=== PATIENT | female | born 1970 | race Caucasian/White ===

== ENCOUNTER 2018-12-26 12:04 | Emergency (ER) | payer BC, OTHER ==
[~2018-12-26 12:04] MED LIST: ISOVUE-370 76%-LOCM 1 ML ONE
[2018-12-26 13:05] LABS: #Eosinphils 0.1 thou/uL (0.0-0.7); #Lymphocytes 1.7 thou/uL (1.20-3.40); #Monocytes 0.6 thou/uL (0.11-0.59); #Neutrophils 5.5 thou/uL (1.40-6.50); %Basophils 0.6 % (0.0-1.0); %Eosinophils 0.7 % (0.0-10.0); %Lymphocytes 21.9 % (21.0-51.0); %Monocytes 7.9 % (0.0-10.0); %Neutrophils 68.9 % (42.0-75.0); Hemoglobin 13.4 g/dL (12.0-16.0); Mean Corpuscular Hemoglobin 31.6 pg (27.0-31.0); Mean Corpuscular Volume 95.9 fL (78.0-98.0); Mean Platelet Volume 9.4 fL (7.4-10.4); Platelet Count 146 thou/uL (130-400); Red Blood Cell (RBC) Count 4.24 mill/uL (4.20-5.40)
[2018-12-26 13:27] LABS: ALT (SGPT) 9 U/L (8-55); AST (SGOT) 14 U/L (5-34); Albumin 4.6 g/dL (3.5-5.0); Alkaline Phosphatase 52 U/L (40-150); Anion Gap 12 mmol/L (10-20); BUN (Urea Nitrogen) 11 mg/dL (7.0-18.7); Bilirubin, Total 0.4 mg/dL (0.2-1.2); Calc. Creatinine Clearance 0 mL/min (70-130); Calcium 9.7 mg/dL (7.8-10.44); Carbon Dioxide 28 mmol/L (22-29); Chloride 103 mmol/L (98-107); Estimated GFR-MDRD 85; Globulin 2.4 g/dL (2.4-3.5); Glucose 96 mg/dL (70-105); Lipase 34 U/L (8-78); Potassium 3.9 mmol/L (3.5-5.1); Sodium 139 mmol/L (136-145)
[2018-12-26] MEDS ORDERED: Ondansetron PF 4 MG/2 ML Vial ONE (14:53)
[2018-12-26 15:55] LABS: Bilirubin Negative (Negative); Blood, Urine Negative (Negative); Clarity Clear (Clear); Glucose, Urine (Dipstick) Normal (Negative); Leukocyte Negative Leu/uL (Negative); Nitrite Negative (Negative); Protein, Urine (Dipstick) Negative (Neg-Trace); Urobilinogen Normal mg/dL (Less than 2)
--- NOTE | 2018-12-26 16:58 | CT ---
ABDOMEN CT WITH CONTRAST PELVIC CT WITH CONTRAST: Date: 12/26/18 HISTORY: Severe abdominal pain. COMPARISON: None. FINDINGS: ABDOMEN CT: Lung bases are clear. Heart size is normal. No significant pericardial fluid. Visualized aorta has a normal caliber. Portal vein is patent. Unremarkable gallbladder. Multiple hypodensities in the liver, a majority of which are too small to characterize. Largest hypod ensity, at the caudate lobe of the liver measures 1.2 x 1.2 cm and is compatible with a cyst. No enha ncing masses in the liver. Spleen, pancreas, and adrenal glands are unremarkable. No gastrohepatic, retrocrural, or periportal lymphadenopathy. There is dehiscence at the ventral abdominal wall without evidence of bowel herniation. Symmetric enhancement of the kidneys. Bilaterally, no obstructive uropathy. No mesenteric mass, lymphadenopathy, free air, or free fluid. Gastric mucosa, duodenum, and multiple normal caliber contrast-filled small bowel loops are noted. No rmal caliber appendix. Ileocecal junction is normal. Colon is opacified with contrast and is grossly unremarkable. Occasional diverticulum. There is a short segment of small bowel that appears to be markedly diminutive in caliber. However, c ontrast does pass through this region (axial image #41, coronal image #46). Significance is uncertain . Additional diminutive segments of small bowel are identified and are of uncertain significance. CT PELVIS: Mild urinary bladder mucosal thickening may be due to inadequate distention. Hysterectomy changes are suspected. There is a hypodensity in the right adnexa which may be of ovarian origin and corresponds to a dominant follicle measuring 1.1 cm in maximal dimension. Pelvic ultrasound if clinically warran arvin. No significant free air or free fluid in the pelvis. No lytic or blastic lesions of the osseous structures. IMPRESSION: 1. No acute abnormality in the abdomen or pelvis. 2. Multiple segments of small bowel that have a very diminutive caliber. Nevertheless, contrast does pass through these regions. Significance is uncertain. POS: SHARON
== END 2018-12-26 17:32 | disposition home or self-care (01) ==
LOC: ERS 12:04
DX: R10.30 Lower abdominal pain, unspecified (principal); F17.210 Nicotine dependence, cigarettes, uncomplicated
CPT/HCPCS: 36415; 74177; 80053; 81003; 83690; 85025; 96374; J2405; Q9966